=== PATIENT | male | born 1935 | race Caucasian/White ===

== ENCOUNTER 2019-04-24 11:24 | Emergency (ER) | payer BC, MEDICARE ==
[2019-04-24 11:45] VITALS: BP 150/85
--- NOTE | 2019-04-24 11:59 | UC ---
General HPI - HPI Summary HPI Summary: Patient presents to urgent care with his daughter. Patient's 83-year-old on a complex medical history including HTN, CABG, pacemaker. Pt here with cough x 3 days. non productive. No sob, no wheeze. Pt reports sinus congestion and PND. No OTC meds taken. no ear pain. mild sore throat. Pt without history of lung dx no oxygen, asthma PNA in fall. no change in appetite. no n/v. Chronic diarrhea. no sick contacts 2 days ago pt with an episode was off balance when first stood up. Has not recurred. Pt states x 20 years, needs to slowly change position lying to sitting, sitting to standing - no change in this. no pain Medications reviewed - History of Current Complaint Chief Complaint: UCRespiratory Stated Complaint: COUGH CHEST CONGESTION Time Seen by Provider: 04/24/19 11:52 Hx Obtained From: Patient, Family/Associate Professor Of Pathology - daughter Onset Severity: Mild Current Severity: None Pain Intensity: 0 - Allergy/Home Medications Allergies/Adverse Reactions: Allergies Allergy/AdvReac Type Severity Reaction Status Date / Time terazosin Allergy Severe Unknown Verified 04/24/19 11:44 Reaction Details Home Medications: Home Medications Losartan TAB* [Cozaar TAB*] 12.5 mg PO DAILY 04/24/19 [History Confirmed ] Magnesium Oxide [Mag-Oxide] 400 mg PO DAILY 04/24/19 [History Confirmed 04/24/19 ] Oxybutynin TAB* [Ditropan TAB*] 10 mg PO DAILY 04/24/19 [History Confirmed 04/24] PMH/Surg Hx/FS Hx/Imm Hx Previously Healthy: Yes Endocrine History: Other Cardiovascular History: Cardiac Disease, Hypertension - Surgical History Surgical History: Yes Surgery Procedure, Year, and Place: quadruple bypass 1998, [facility], pacemaker put in as well. hernia repairs. appendectomy. vein bypass graft. Abd surgery for colon CA - Family History Known Family History: Positive: Non-Contributory - Social History Occupation: Retired Lives: With Family Alcohol Use: Occasionally Alcohol Amount: 1 glass wine weekly Substance Use Type: None Smoking Status (MU): Former Smoker Household Exposure Type: Cigarettes - Immunization History Most Recent Influenza Vaccination: unknown Most Recent Tetanus Shot: unknown Most Recent Pneumonia Vaccination: never Review of Systems All Other Systems Reviewed And Are Negative: Yes Constitutional: Positive: Fatigue ENT: Positive: Sore Throat, Nasal Discharge, Sinus Congestion Respiratory: Positive: Cough Cardiovascular: Positive: Negative Gastrointestinal: Positive: Negative Genitourinary: Positive: Negative Physical Exam - Summary Physical Exam Summary: Vital Signs Reviewed: Yes A+Ox3, no distress, intermittent cough Eyes: Conjunctiva Clear, JONAS. EOM intact and full ENT: Hearing grossly normal TM x 2 clear, turbinates inflammed, + PND mmoist , uvula midline, no exudate, mild erythema Neck: Positive: Supple Respiratory: Positive: No respiratory distress, No accessory muscle use + CTA throughout few scattered wheeze no rhonci coarse intermittent cough Cardiovascular: RRR nl s1, s2 no m/r CBT <2 sec abd soft + BS nt/nd no guarding, no distension Musculoskeletal Exam: BOND x 4 without difficulty Strength Intact, ROM Intact Neurological: Positive: Alert, + sensation throughout Psychological: Positive: Normal Response To Family Skin: Positive: no rash, no ecchymosis Triage Information Reviewed: Yes Vital Signs: Initial Vital Signs Temp 98.6 F 04/24/19 11:34 Pulse 83 04/24/19 11:34 Resp 24 04/24/19 11:34 BP 150/85 04/24/19 11:34 Pulse Ox 97 04/24/19 11:34 Diagnostics - Radiology No standard instances Radiology Interpretation Completed By: Radiologist - Patient Name: DEEDEE VELARDE Medical Record#: [id number] Ordering Physician: Marie Rascon MD Acct.#: [id number] : 1935 Age: 83 Sex: M Location: [facility] Exam Date: 04/24/19 1206 ADM Status: REG ER Order Information: CHEST PA & LAT 2 VWS Accession Number: [id number] CPT: 21329 INDICATION: Cough, scattered wheezing. Cardiac disease. COMPARISON: December 08, 2017 chest radiograph and May 08, 2017 CT. TECHNIQUE: Dual energy PA and routine lateral views of the chest were obtained. REPORT: Median sternotomy wires, cardiomegaly, RIGHT atrial, RIGHT ventricular, and coronary sinus pacemaker leads. Unremarkable central pulmonary vasculature. Unchanged mild elevation of the LEFT hemidiaphragm. Mild prominence of the interstitial markings similar to the prior exams as well as upper lung zone patchy rarefaction. No compelling pulmonary infiltrate to indicate pneumonia. Accessory azygos fissure at the medial RIGHT upper lung zone. Negative for pleural effusions or pneumothorax. IMPRESSION: #. Arterial megaly without evidence for pulmonary edema. #. Stigmata of probable chronic obstructive pulmonary disease without evidence for pneumonia. <Electronically signed by Nabor Cisneros MD in OV> 04/24/19 1232 Dictated By: Nabor Cinseros MD Dictated Date/Time: 04/24/19 1232 Transcribed Date/Time: 04/24/19 1224 Copy to: CC:Aliza Mcmillan MD; Marie Rascon MD Imaging - [facility] Imaging - [facility] [address] [address] ph ([phone]) ph ([phone]) ph ([phone]) This report is only to be considered final once signed by the Provider(s) as displayed in the "<Electronically Signed by >" field (s). Absence of a signature indicates the report is in a draft status and still needs to be finalized. In the event this document was created by someone other than the signing Provider, the individual initiating the document will be listed in the "Entered by:" or "Dictated by:" currie. of 1 Re-Evaluation - Re-Evaluation First Eval Change: Improved - no wheeze - better aeration no cough Will Rx mdi, abx, flonase, loratidine reocmmend PCP recheck this week strict return precautions secretion precaution comfort and agreement [facility] plan Course/Dx - Course Course Of Treatment: Pt presents to urgent care with 2-3 days of a cough. Patient also with some sinus congestion postnasal drip. On exam patient does have a coarse frequent cough. Patient with sinus congestion postnasal drip. Patient with scattered wheezing. Otherwise vital signs are stable. Patient no distress. Will do a DuoNeb chest x-ray and reassess. Patient otherwise is feeling well and looks well so don't feel at this time need to transfer urgently to the ED will reassess BP elevated- h/o same - Diagnoses Provider Diagnosis: Rhinosinusitis, Acute bronchitis Discharge - Sign-Out/Discharge Documenting (check all that apply): Patient Departure All imaging exams completed and their final reports reviewed: Yes - Discharge Plan Condition: Stable Disposition: HOME Prescriptions: Albuterol HFA INHALER* [Ventolin HFA Inhaler*] 2 puff INH Q4H PRN #1 mdi PRN Reason: wheeze Amoxicillin PO (*) [Amoxicillin 500 MG CAP*] 500 mg PO Q12H #20 cap Fluticasone NASAL SPRAY 50MCG* [Flonase NASAL SPRAY 50MCG*] 2 spray BOTH NARES DAILY #1 btl Loratadine 10 mg PO DAILY #14 capsule Patient Education Materials: Acute Bronchitis (ED), Rhinosinusitis (ED) Referrals: Aliza Mcmillan MD [Primary Care Provider] - Additional Instructions: -Take antibiotics exactly as prescribed until gone -use nasal spray daily -Use your albuterol puffer - 2 puffs every 4 hours for the next 2 days - then as needed -Stay well hydrated - avoid excess caffeine and all alcohol - eat regular, healthy meals - take Loratidine (allergy medication) as prescribed -- These infections are spread by secretions - do NOT share eating or drinking utensils - clean items you share with other people such as cell phones, computer mouse, TV remote, computer tablets,etc.. Once you have been antibiotics for 2 days, change your toothbrush and your pillowcase. -Contact your doctor on Friday to arrange a follow-up appointment this week. Call your doctor, return here or go to the emergency department with any questions or concerns - Billing Disposition and Condition Condition: STABLE Disposition: Home
[2019-04-24] MEDS ORDERED: Levalbuterol 1.25MG/0.5ML NEB INH ONE (12:06)
[2019-04-24] MEDS ORDERED: Levalbuterol 0.63MG/3ML NEB* UNIT OF USE INH ONE ×2 (12:11→12:12)
== END 2019-04-24 12:58 | disposition home or self-care (01) ==
LOC: UCEAST 11:24
DX: J32.9 Chronic sinusitis, unspecified (principal); J20.9 Acute bronchitis, unspecified; I10 Essential (primary) hypertension; Z95.1 Presence of aortocoronary bypass graft; Z95.0 Presence of cardiac pacemaker; Z87.891 Personal history of nicotine dependence
CPT/HCPCS: 71046; 99212; A9270-GY; G0463

== ENCOUNTER 2020-11-18 15:29 | Inpatient (IN) ==
[2020-11-18 17:20] LABS: ABS Eosinophils 0.1 10^3/ul (0-0.6); ABS Lymphocytes 1.2 10^3/ul (1.0-4.8); ABS Monocytes 1.2 10^3/ul (0-0.8); ABS Neutrophils 10.9 10^3/ul (1.5-7.7); Eosinophil % 0.5 %; Hematocrit 42 % (42-52); Hemoglobin 14.1 g/dL (14.0-18.0); Lymphocyte % 8.6 %; Mean Corpuscular HGB Conc 33 g/dL (31-36); Mean Corpuscular Hemoglobin 32 pg (27-31); Mean Corpuscular Volume 98 fL (80-94); Mean Platelet Volume 8.8 fL (7.4-10.4); Platelet Count 185 10^3/uL (150-450); Red Blood Count 4.34 10^6 /uL (4.18-5.48); Red Cell Distribution Width 14 % (10-15); White Blood Count 13.3 10^3/uL (3.5-10.8)
[2020-11-18 17:28] LABS: Activated Partial Thrombo Time 28.4 seconds (26.0-38.0); INR 1.06 (0.82-1.09)
[2020-11-18 17:44] LABS: ALT 16 U/L (7-52); AST 27 U/L (13-39); Albumin 3.9 g/dL (3.2-5.2); Alkaline Phosphatase 79 U/L (34-104); Anion Gap 6 mmol/L (2-11); BUN/Creatinine Ratio 12.4 (8-20); Blood Urea Nitrogen 12 mg/dL (6-24); C Reactive Protein 10.19 mg/L (<8.01); CO2 Carbon Dioxide 29 mmol/L (22-32); Calcium 10.1 mg/dL (8.6-10.3); Chloride 98 mmol/L (101-111); EGFR African American 89.4 (>60); EGFR Non-African American 73.9 (>60); Glucose 108 mg/dL (70-100); Potassium 4.1 mmol/L (3.5-5.0); Sodium 133 mmol/L (135-145)
[2020-11-18 17:47] LABS: Influenza A Molecular Negative (Negative); Influenza B Molecular Negative (Negative)
[2020-11-18 17:51] LABS: LDH 204 U/L (140-271)
[2020-11-18 17:53] LABS: Troponin I 0.06 ng/mL (<0.03)
[2020-11-18 18:11] LABS: Ferritin 115.7 ng/mL (24-336)
[2020-11-18 18:40] LABS: Albumin/Globulin Ratio 1.3 (1-3); Globulin 3.1 g/dL (2-4)
[2020-11-18 18:50] LABS: Urine Appearance Clear; Urine Bilirubin Negative (Negative); Urine Blood Negative (Negative); Urine Color Yellow; Urine Glucose Negative (Negative); Urine Ketones Negative (Negative); Urine Nitrite Negative (Negative); Urine Protein Negative (Negative); Urine Specific Gravity 1.009 (1.010-1.030); Urine Urobilinogen Negative (Negative)
[2020-11-18 18:56] LABS: Urine Bacteria Absent (Absent); Urine Red Blood Cell Trace(0-2/hpf) (Absent); Urine Squamous Epithelial Cell Present (Absent); Urine White Blood Cell 2+(11-20/hpf) (Absent)
[2020-11-18] MEDS ORDERED: Furosemide 40 mg/4 ml IV VIAL IV SLOW PU ONE (21:24)
[2020-11-18 21:45] LABS: Magnesium 1.6 mg/dL (1.9-2.7)
[2020-11-18] MEDS ORDERED: Magnesium Sulfate 2 gm BAG 2 GM/50 ML BAG IVPB ONE (22:17)
[2020-11-19] MEDS: cefTRIAXone 1 gm/50 mL NS BAG 1 GM/50 ML BAG IVPB SCH (00:43)
[2020-11-19] MEDS: Enoxaparin 40 MG/0.4 ML SYR SUBCUT SCH (00:43)
[2020-11-19] MEDS: Azithromycin 500 mg/250 ml NS 500 MG/250 ML BAG IVPB SCH (00:44)
[2020-11-19 06:10] LABS: Calcium 8.8 mg/dL (8.6-10.3)
[2020-11-19 06:14] LABS: Potassium 4.4 mmol/L (3.5-5.0)
[2020-11-19 06:15] LABS: EGFR African American 93.9 (>60); EGFR Non-African American 77.6 (>60)
[2020-11-19 08:44] LABS: ABS Eosinophils 0.1 10^3/ul (0-0.6); ABS Lymphocytes 0.9 10^3/ul (1.0-4.8); ABS Monocytes 1.4 10^3/ul (0-0.8); ABS Neutrophils 12.3 10^3/ul (1.5-7.7); Eosinophil % 0.3 %; Hematocrit 40 % (42-52); Hemoglobin 13.5 g/dL (14.0-18.0); Lymphocyte % 6.3 %; Mean Corpuscular HGB Conc 34 g/dL (31-36); Mean Corpuscular Hemoglobin 33 pg (27-31); Mean Corpuscular Volume 97 fL (80-94); Mean Platelet Volume 8.2 fL (7.4-10.4); Platelet Count 160 10^3/uL (150-450); Red Blood Count 4.11 10^6 /uL (4.18-5.48); Red Cell Distribution Width 14 % (10-15); White Blood Count 14.7 10^3/uL (3.5-10.8)
[2020-11-19 12:06] LABS: Troponin I 0.08 ng/mL (<0.03)
[2020-11-19] MEDS ORDERED: NS 0.9% 1000 ml BAG 1,000 ML IV SCH (16:00)
[2020-11-19 16:17] LABS: Troponin I 0.07 ng/mL (<0.03)
[2020-11-19] MEDS: NS 0.9% 1000 ml BAG 1,000 ML IV SCH (18:07)
[2020-11-20] MEDS: Enoxaparin 40 MG/0.4 ML SYR SUBCUT SCH ×2 (00:08→21:56)
[2020-11-20] MEDS: cefTRIAXone 1 gm/50 mL NS BAG 1 GM/50 ML BAG IVPB SCH (00:15)
[2020-11-20] MEDS: Azithromycin 500 mg/250 ml NS 500 MG/250 ML BAG IVPB SCH (01:33)
[2020-11-20 05:52] LABS: ABS Eosinophils 0.1 10^3/ul (0-0.6); ABS Lymphocytes 0.8 10^3/ul (1.0-4.8); ABS Neutrophils 10.6 10^3/ul (1.5-7.7); Eosinophil % 1.1 %; Hematocrit 41 % (42-52); Hemoglobin 13.8 g/dL (14.0-18.0); Lymphocyte % 6.5 %; Mean Corpuscular HGB Conc 34 g/dL (31-36); Mean Corpuscular Hemoglobin 33 pg (27-31); Mean Corpuscular Volume 98 fL (80-94); Mean Platelet Volume 8.8 fL (7.4-10.4); Nucleated Red Blood Cells % 0.2; Platelet Count 175 10^3/uL (150-450); Red Blood Count 4.17 10^6 /uL (4.18-5.48); Red Cell Distribution Width 14 % (10-15); White Blood Count 12.7 10^3/uL (3.5-10.8)
[2020-11-20 06:12] LABS: Calcium 8.8 mg/dL (8.6-10.3); EGFR African American 120.3 (>60); EGFR Non-African American 99.5 (>60); Potassium 3.7 mmol/L (3.5-5.0)
[2020-11-20 07:44] LABS: Magnesium 1.8 mg/dL (1.9-2.7)
[2020-11-20 08:30] LABS: Troponin I 0.06 ng/mL (<0.03)
[2020-11-20] MEDS ORDERED: Magnesium Sulfate 2 gm BAG 2 GM/50 ML BAG IVPB ONE (09:38)
[2020-11-20] MEDS: NS 0.9% 1000 ml BAG 1,000 ML IV SCH (10:39)
[2020-11-20] MEDS ORDERED: Zosyn per Pharmacy NOTE FOLLOW UP SCH (12:00)
[2020-11-20] MEDS ORDERED: ZOSYN 3.375 GM x ONE DOSE over 30 miuntes IV (12:00)
[2020-11-20] MEDS: ZOSYN 3.375 GM Q8H per EXTENDED INFUSION IV SCH (18:19)
[2020-11-20] MEDS: Aspirin EC 81 mg TAB.EC (enteric coated) PO SCH (18:19)
[2020-11-21] MEDS: ZOSYN 3.375 GM Q8H per EXTENDED INFUSION IV SCH ×3 (01:33→22:24)
[2020-11-21 06:56] LABS: ABS Lymphocytes 0.9 10^3/ul (1.0-4.8); ABS Monocytes 1.1 10^3/ul (0-0.8); Eosinophil % 0.3 %; Hematocrit 39 % (42-52); Hemoglobin 13.3 g/dL (14.0-18.0); Lymphocyte % 8.3 %; Mean Corpuscular HGB Conc 34 g/dL (31-36); Mean Corpuscular Hemoglobin 33 pg (27-31); Mean Corpuscular Volume 97 fL (80-94); Mean Platelet Volume 8.1 fL (7.4-10.4); Platelet Count 180 10^3/uL (150-450); Red Blood Count 4.02 10^6 /uL (4.18-5.48); Red Cell Distribution Width 13 % (10-15); White Blood Count 11.1 10^3/uL (3.5-10.8)
[2020-11-21 07:05] LABS: Calcium 8.7 mg/dL (8.6-10.3); Potassium 4.1 mmol/L (3.5-5.0)
[2020-11-21 07:10] LABS: BUN/Creatinine Ratio 23.1 (8-20); EGFR Non-African American 95.1 (>60)
[2020-11-21] MEDS: Aspirin EC 81 mg TAB.EC (enteric coated) PO SCH (08:35)
[2020-11-22] MEDS: Enoxaparin 40 MG/0.4 ML SYR SUBCUT SCH (00:22)
[2020-11-22 00:45] VITALS: BP 169/82
[2020-11-22] MEDS ORDERED: ZOSYN 3.375 GM Q8H per EXTENDED INFUSION IV SCH (06:00)
== END 2020-11-22 01:10 | disposition expired | DRG 64 ==
LOC: ED 15:29 → MED 15:29
PROVIDERS: ADMIT Internal Medicine Interventional Cardiology; ATTEND Student in an Organized Health Care Education/Training Program